=== PATIENT | male | born 1985 | race Caucasian/White ===

== ENCOUNTER 2017-03-08 18:53 | Emergency (ER) | payer MEDICARE, MEDICAID ==
--- NOTE | 2017-03-08 19:42 | ED Physician Documentation ---
PD HPI HEADACHE - Stated complaint Stated Complaint: HEAD PAIN - Chief complaint Chief Complaint: Neuro - History obtained from History obtained from: Patient - History of Present Illness Timing - onset: How many days ago (3) Timing - duration: Days (3) Timing - details: Abrupt onset Pain level max: 6 Pain level now: 6 Location: Back Quality: Aching, Other (sharp) Associated symptoms: No: Fever, Stiff neck, Vomiting, Weakness, Numbness, Syncope, Seizure, Eye pain, Vision changes Improved by: Rest Worsened by: Light, Noise, Moving Contributing factors: No: Anticoagulated, Possible carbon monoxide, Hypertension , Trauma - Additional information Additional information: Pt is a transgender HIV+ male. States last viral load undetectable. States lifting weights on Monday, had sharp occipital headache. 01/14. Mild relief with tylenol. States continues to have some posterior headache. No numbness, or tingling. +nausea. No vomiting. Review of Systems Ten Systems: 10 systems reviewed and negative Constitutional: denies: Fever, Chills Ears: denies: Ear pain Nose: denies: Rhinorrhea / runny nose, Congestion Throat: denies: Sore throat Cardiac: denies: Chest pain / pressure Respiratory: denies: Cough GI: denies: Nausea, Vomiting, Diarrhea Skin: denies: Rash Musculoskeletal: denies: Neck pain, Back pain Neurologic: denies: Focal weakness, Numbness, Seizure, Confused, Altered mental status PD PAST MEDICAL HISTORY - Past Medical History Respiratory: Other Neuro: None Endocrine/Autoimmune: None Psych: Depression Musculoskeletal: Chronic back pain - Past Surgical History Past Surgical History: Yes 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 - Present Medications Home Medications: Ambulatory Orders Medication Instructions Recorded Confirmed Emtricitabine/Tenofovir [Truvada 1 tab PO DAILY 01/05/16 01/05/16 200 mg-300 mg Tablet] Lopinavir/Ritonavir [Kaletra 1 tab PO DAILY 01/05/16 01/05/16 200-50 mg Tablet] oxyCODONE/ACET 5/325 [Percocet 5 1 - 2 tab PO Q4-6H PRN #20 tablet 01/05/16 mg/325 mg] - Allergies Allergies/Adverse Reactions: Allergies Allergy/AdvReac Type Severity Reaction Status Date / Time hydrocodone bitartrate * Allergy Nausea Verified 01/05/16 11:21 [From Vicodin] Sulfa (Sulfonamide Allergy Rash Verified 01/05/16 11:21 Antibiotics) - Social History Does the pt smoke?: No Smoking Status: Never smoker Does the pt drink ETOH?: Yes Does the pt have substance abuse?: No - POLST Patient has POLST: No PD ED PE NORMAL - Vitals Vital signs reviewed: Yes - General General: Alert and oriented X 3, No acute distress, Well developed/nourished - HEENT HEENT: PERRL, Moist mucous membranes - Neck Neck: Supple, no meningeal sign, No JVD, No bruit - Cardiac Cardiac: RRR, Strong equal pulses - Respiratory Respiratory: No respiratory distress, Clear bilaterally - Abdomen Abdomen: Soft, Non tender, Non distended - Back Back: No spinal TTP - Derm Derm: Warm and dry, No rash - Extremities Extremities: No calf tenderness / cord - Neuro Neuro: Alert and oriented X 3, rn procedures 2-12 intact, No motor deficit, No sensory deficit, Normal speech, Other (normal cerebellar tests) - Psych Psych: Normal mood, Normal affect Results - Vitals Vitals: Oxygen O2 Source Room air - Labs Labs: Laboratory Tests 03/08/17 03/08/17 20:26 20:26 WBC 10.3 RBC 5.31 Hgb 15.1 Hct 45.5 MCV 85.8 MCH 28.5 MCHC 33.2 RDW 14.5 Plt Count 256 MPV 8.4 Neut # 6.2 Lymph # 2.6 [place] # 0.7 Eos # 0.7 Baso # 0.1 Absolute Nucleated RBC 0.01 Nucleated RBCs 0.1 Sodium 137 Potassium 3.9 Chloride 103 Carbon Dioxide 26 Anion Gap 8.0 BUN 19 Creatinine 1.2 Estimated GFR (MDRD) 70 L Glucose 106 H Calcium 9.2 Total Bilirubin 0.4 AST 42 ALT 26 Alkaline Phosphatase 40 L Total Protein 7.2 Albumin 4.2 Globulin 3.0 Albumin/Globulin Ratio 1.4 Lipase 38 - Rads (name of study) head CT Radiology: Prelim report reviewed, EMP read contemporaneously, See rad report ( normal) PD MEDICAL DECISION MAKING - ED course Complexity details: reviewed results, re-evaluated patient, considered differential, d/w patient ED course: Patient is a 32-year-old transgendered male who presents to the emergency department with a headache for the past 3 days. Resolved with Toradol and Imitrex. No acute findings on head CT. We did discuss the possibility of a missed subarachnoid hemorrhage on head CT, patient declines lumbar puncture at this time. We will have him follow-up with his doctor for further evaluation and care. He is well-appearing, nontoxic. Afebrile. Normal neurological exam. Patient counseled regarding signs and symptoms for which I believe and urgent re-evaluation would be necessary. Patient with good understanding of and agreement to plan and is comfortable going home at this time This document was made in part using voice recognition software. While efforts are made to proofread this document, sound alike and grammatical errors may occur. Departure - Departure Disposition: Home, Self Care Clinical Impression: Headache Qualifiers: Headache type: unspecified Headache chronicity pattern: acute headache Intractability: not intractable Qualified Code(s): R51 - Headache Condition: Good Instructions: ED Cephalgia Unspecified Follow-Up: TRINI SALAZAR MD [Primary Care Provider] - Within 1 week Comments: Return if you worsen. Your head CT and lab work is normal tonight. Your blood pressure was elevated today on check in to the emergency department. This does not mean that you have hypertension, it is a common phenomenon to check into the emergency department and have elevated blood pressure. I recommend that you see your primary care physician within the week to have it rechecked when you're feeling better. Discharge Date/Time: 03/08/17 22:09
[2017-03-08 20:32] LABS: BASOPHILS # (AUTO) 0.1 10^3/uL (0.0-0.1); BASOPHILS % (AUTO) 0.6 %; EOSINOPHILS # (AUTO) 0.7 10^3/uL (0.0-0.7); EOSINOPHILS % (AUTO) 6.8 %; HCT - HEMATOCRIT 45.5 % (42.0-52.0); HGB - HEMOGLOBIN 15.1 g/dL (14.0-18.0); LYMPHOCYTES # (AUTO) 2.6 10^3/uL (1.5-3.5); LYMPHOCYTES % (AUTO) 25.1 %; MEAN CORPUSCULAR HEMOGLOBIN 28.5 pg (27.0-31.0); MEAN CORPUSCULAR HGB CONC 33.2 g/dL (32.0-36.0); MEAN CORPUSCULAR VOLUME 85.8 fL (80.0-94.0); MEAN PLATELET VOLUME 8.4 fL (7.4-11.4); MONOCYTES # (AUTO) 0.7 10^3/uL (0.0-1.0); MONOCYTES % (AUTO) 7.1 %; NEUTROPHILS # (AUTO) 6.2 10^3/uL (1.5-6.6); NEUTROPHILS % (AUTO) 60.4 %; NUCLEATED RED BLOOD CELLS AUTO 0.1 /100WBC; RED BLOOD COUNT 5.31 10^6/uL (4.70-6.10); RED CELL DISTRIBUTION WIDTH 14.5 % (12.0-15.0); UNCORRECTED WHITE BLOOD COUNT 10.3 x10^3/uL; WHITE BLOOD COUNT 10.3 x10^3/uL (4.8-10.8)
[2017-03-08] MEDS ORDERED: KETOROLAC 60 MG/2 ML VIAL IVP STA (20:44)
[2017-03-08] MEDS ORDERED: SUMAtriptan 6 MG/0.5 ML VIAL SUBQ STA (20:44)
[2017-03-08 20:45] LABS: ALBUMIN/GLOBULIN RATIO 1.4 (1.0-2.2); BILIRUBIN,TOTAL 0.4 mg/dL (0.2-1.0); CALCIUM 9.2 mg/dL (8.5-10.3); CREATININE 1.2 mg/dL (0.6-1.2); POTASSIUM 3.9 mmol/L (3.5-5.0); TOTAL PROTEIN 7.2 g/dL (6.7-8.2)
[2017-03-08] MEDS ORDERED: KETOROLAC 30 MG/ML VIAL ONE (20:54)
[2017-03-08] MEDS ORDERED: SUMAtriptan 6 MG/0.5 ML VIAL SUBQ ONE (20:54)
--- NOTE | 2017-03-08 20:57 | CT Preliminary Report ---
Exam: CT Head W/O IMPRESSION: Normal head CT. [facility] SITE ID: [id number]
--- NOTE | 2017-03-08 21:00 | CT Report ---
EXAM: CT HEAD EXAM DATE: 03/08/2017 08:35 PM. CLINICAL HISTORY: Occipital headache COMPARISON: None. TECHNIQUE: Multiaxial CT images were obtained from the foramen magnum to the vertex. IV contrast: Non e. Reformats: Coronal. In accordance with CT protocol optimization, one or more of the following dose reduction techniques w ere utilized for this exam: automated exposure control, adjustment of mA and/or KV based on patient s ize, or use of iterative reconstructive technique. FINDINGS: Parenchyma: No intraparenchymal hemorrhage. No evidence of mass, midline shift, or CT findings of inf arction. Paz-white differentiation is distinct. Extraaxial Spaces: Normal for age. No subdural or epidural collections identified. Ventricles: Normal in size and position. Sinuses: Imaged paranasal sinuses, orbits, and mastoids show no significant abnormality. Bones: No evidence of fracture or calvarial defect. Other: None. IMPRESSION: Normal head CT. [facility] Referring Provider Line: [phone] SITE ID: [id number]
[2017-03-08 21:48] VITALS: BP 134/96
== END 2017-03-08 22:09 | disposition home or self-care (01) ==
LOC: ED 18:53
DX: R51 Headache (principal); R03.0 Elevated blood-pressure reading, without diagnosis of hypertension; G89.29 Other chronic pain; Z21 Asymptomatic human immunodeficiency virus [HIV] infection status
CPT/HCPCS: 36415; 70450; 80053; 83690; 85025; 96372; 96374; 99283; 99284

== ENCOUNTER 2018-03-28 02:43 | Emergency (ER) | payer MEDICARE, MEDICAID ==
[2018-03-28 02:59] VITALS: BP 166/97
[2018-03-28] MEDS ORDERED: DEXAMETHASONE 10 MG/ML VIAL PO STA (02:59)
[2018-03-28] MEDS ORDERED: CYCLOBENZAPRINE 10 MG Prepack 2 PO STA (02:59)
[2018-03-28] MEDS ORDERED: KETOROLAC 60 MG/2 ML VIAL IM STA (02:59)
[2018-03-28] MEDS ORDERED: CHERRY SYRUP 10 ML UDC PO ONE (03:03)
--- NOTE | 2018-03-28 03:03 | ED Physician Documentation ---
PD HPI BACK INJURY - Stated complaint Stated Complaint: BACK PAIN - History obtained from History obtained from: Patient - History of Present Illness Location: Left, Lower Type of injury: Other (lifting) Where injury occurred: Home Timing - onset: Yesterday Timing - details: Abrupt onset, Still present Quality: Pain, Spasm Worsened by: Moving, Palpating Associated symptoms: No: Fever, Weakness, Numbness, Incontinent of urine, Unable to urinate, Hematuria Recently seen: Not recently seen - Additional information Additional information: Patient is presenting to the emergency department for back pain. patient states that he was pulling a bale of hay out of the trunk of his car and he was in an odd position and he tweaked his back. Patient denies any neurological deficits. 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 - Present Medications Home Medications: Ambulatory Orders Medication Instructions Recorded Confirmed Emtricitabine/Tenofovir [Truvada 1 tab PO DAILY 01/05/16 01/05/16 200 mg-300 mg Tablet] Lopinavir/Ritonavir [Kaletra 1 tab PO DAILY 01/05/16 01/05/16 200-50 mg Tablet] oxyCODONE/ACET 5/325 [Percocet 5 1 - 2 tab PO Q4-6H PRN #20 tablet 01/05/16 mg/325 mg] Cyclobenzaprine [Flexeril] 10 mg PO TID PRN #10 tablet 03/28/18 Lidocaine Patch 5% [Lidoderm Patch] 1 each TOP DAILY #10 patch 03/28/18 - Allergies Allergies/Adverse Reactions: Allergies Allergy/AdvReac Type Severity Reaction Status Date / Time hydrocodone bitartrate * Allergy Nausea Verified 03/28/18 02:51 [From Vicodin] Sulfa (Sulfonamide Allergy Rash Verified 03/28/18 02:51 Antibiotics) - Social History Does the pt smoke?: No Smoking Status: Never smoker Does the pt drink ETOH?: Yes Does the pt have substance abuse?: No - POLST Patient has POLST: No PD ED PE NORMAL - Vitals Vital signs reviewed: Yes - General General: Alert and oriented X 3, No acute distress - HEENT HEENT: Atraumatic - Cardiac Cardiac: RRR - Respiratory Respiratory: No respiratory distress - Abdomen Abdomen: Non tender, Non distended - Derm Derm: Normal color - Extremities Extremities: No deformity - Neuro Neuro: Alert and oriented X 3, No motor deficit, No sensory deficit, Normal speech, Other (no saddle parasthesia) Eye Opening: Spontaneous PD ED PE EXPANDED - Back Back: Soft tissue tenderness (tenderness to palpation of left lower paraspinal muscles ), Straight leg raise + L. No: Straight leg raise + R Results - Vitals Vitals: Vital Signs - 24 hr 03/28/18 02:45 Temperature 36.2 C L Heart Rate 83 Respiratory 18 Rate Blood Pressure 166/97 H O2 Saturation 100 Oxygen O2 Source Room air PD MEDICAL DECISION MAKING - ED course Complexity details: reviewed old records, re-evaluated patient, considered differential, d/w family ED course: Patient was seen and examined at bedside. Patient had no focal neurological deficits and straight leg testing was unilateral indicating the injury was unlikely central in nature. Patient was treated with toradol and decadron. Patient required no further inpatient work up and was stable for discharge with outpatient follow up. - Sepsis Event Vital Signs: Vital Signs - 24 hr 03/28/18 02:45 Temperature 36.2 C L Heart Rate 83 Respiratory 18 Rate Blood Pressure 166/97 H O2 Saturation 100 Oxygen O2 Source Room air Departure - Departure Disposition: 01 Home, Self Care Clinical Impression: Low back strain Condition: Good Instructions: ED Back Care Tips, ED Sprain Strain Lumbar Follow-Up: TRINI SALAZAR MD [Primary Care Provider] - Within 3 Days Prescriptions: Cyclobenzaprine [Flexeril] 10 mg PO TID PRN #10 tablet PRN Reason: Spasms Lidocaine Patch 5% [Lidoderm Patch] 1 each TOP DAILY #10 patch Comments: Your symptoms today are likely secondary to a back strain. You should alternate between ice and heat. You can take motrin or tylenol as needed for pain and flexeril for spasm. If you take the flexeril you cannot drive or operate heavy machinery while taking it. You should follow up with your doctor if your symptoms persist. You may return to the emergency department at any time for new, worsening or uncontrollable symptoms.
== END 2018-03-28 03:13 | disposition home or self-care (01) ==
LOC: ED 02:43
DX: S39.012A Strain of muscle, fascia and tendon of lower back, initial encounter (principal); X50.0XXA Overexertion from strenuous movement or load, initial encounter; X50.1XXA Overexertion from prolonged static or awkward postures, initial encounter; Y93.89 Activity, other specified; Y92.009 Unspecified place in unspecified non-institutional (private) residence as the place of occurrence of the external cause
CPT/HCPCS: 96372; 99283; A9270

== ENCOUNTER 2019-06-17 20:01 | Emergency (ER) | payer MEDICARE, MEDICAID ==
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
[2019-06-17] MEDS ORDERED: METHOCARBAMOL 500 MG TABLET PO STA (21:21)
[2019-06-17] MEDS ORDERED: KETOROLAC 60 MG/2 ML VIAL IM STA (21:21)
[2019-06-17] MEDS ORDERED: ACETAMINOPHEN 325 MG TABLET PO STA (21:21)
[2019-06-17] MEDS ORDERED: oxyCODONE/ACET 5/325 Prepack 4 PO STA (21:21)
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
[2019-06-17 22:21] VITALS: BP 123/65
== END 2019-06-17 22:25 | disposition home or self-care (01) ==
LOC: ED 20:01
DX: S39.012A Strain of muscle, fascia and tendon of lower back, initial encounter (principal); R10.30 Lower abdominal pain, unspecified; V40.0XXA Car driver injured in collision with pedestrian or animal in nontraffic accident, initial encounter; Y92.410 Unspecified street and highway as the place of occurrence of the external cause
CPT/HCPCS: 74176; 96372; 99283; 99284; A9270

== ENCOUNTER 2020-05-25 14:00 | Emergency (ER) | payer MEDICARE, MEDICAID ==
--- NOTE | 2020-05-25 14:19 | ED Physician Documentation ---
PD HPI DYSPNEA - Stated complaint Stated Complaint: COUGH, GAYLE - Chief complaint Chief Complaint: Resp - History obtained from History obtained from: Patient - Additional information Additional information: 35-year-old gentleman with history of HIV and AIDS, last CD4 count 146. He became acutely ill yesterday with cough and shortness of breath and a low-grade fever to "99.4." His roommate is also sick. Review of Systems Constitutional: reports: Fever, Fatigue. 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 - Present Medications Home Medications: Ambulatory Orders Medication Instructions Recorded Confirmed Doxycycline Hyclate 100 mg PO BID #14 capsule 05/25/20 - Allergies Allergies/Adverse Reactions: Allergies Allergy/AdvReac Type Severity Reaction Status Date / Time hydrocodone bitartrate * Allergy Nausea Verified 05/25/20 14:02 [From Vicodin] Sulfa (Sulfonamide Allergy Rash Verified 05/25/20 14:02 Antibiotics) - Social History Does the pt smoke?: No Smoking Status: Never smoker Does the pt drink ETOH?: No Does the pt have substance abuse?: Yes - POLST Patient has POLST: No PD ED PE NORMAL - Vitals Vital signs reviewed: Yes - General General: Alert and oriented X 3, No acute distress - HEENT HEENT: PERRL, EOMI - Neck Neck: Supple, no meningeal sign, No bony TTP - Cardiac Cardiac: RRR, No murmur - Respiratory Respiratory: No respiratory distress, Other (Mild expiratory wheezes without focal findings otherwise. Nonlabored.) - Abdomen Abdomen: Non tender - Derm Derm: No rash - Extremities Extremities: No edema, No calf tenderness / cord - Neuro Neuro: Alert and oriented X 3, Normal speech Results - Vitals Vitals: Vital Signs - 24 hr 05/25/20 14:02 Temperature 37.1 C Heart Rate 100 Respiratory 16 Rate Blood Pressure 146/95 H O2 Saturation 98 Oxygen O2 Source Room air - Rads (name of study) 1v chest Radiology: EMP read contemporaneously (normal) PD MEDICAL DECISION MAKING - ED course ED course: 35-year-old gentleman with a respiratory infection. Underlying HIV/AIDS. No evidence of pneumonia or pneumocystis on x-ray. Vitals are unremarkable. Will place on doxycycline given his immunocompromise. Covid test pending. Departure - Departure Disposition: Home, Self Care Clinical Impression: Bronchitis, HIV disease Condition: Good Record reviewed to determine appropriate education?: Yes Instructions: ED Bronchitis Asthmatic Prescriptions: Doxycycline Hyclate 100 mg PO BID #14 capsule Comments: You have a Covid test pending. You need to self quarantine until the result is done and negative. Do not leave your house. Do not get near anybody. The results should be done in 48 to 72 hours. We will call with a positive result, the fastest way to get a negative result for confirmation though is to go to the hospital website at [email or web address], click on the my i'mma tab and sign up for the patient portal.
--- NOTE | 2020-05-25 15:02 | XRAY Report ---
PROCEDURE: Chest 1 View X-Ray INDICATIONS: cough TECHNIQUE: One view of the chest was acquired. COMPARISON: Abdomen/pelvis CT 06/17/2019 FINDINGS: Surgical changes and devices: None. Lungs and pleura: No pleural effusions or pneumothorax. Lungs are clear. Mediastinum: Mediastinal contours appear normal. Heart size is normal. Bones and chest wall: No suspicious bony lesions. Overlying soft tissues appear unremarkable. IMPRESSION: Normal for age, source of current symptoms is not seen. Reviewed by: Jasmeet Rivera MD on 05/25/2020 3:00 PM PDT Approved by: Jasmeet Rivera MD on 05/25/2020 3:00 PM PDT Station ID: [id number]
[2020-05-25 15:29] VITALS: BP 143/88
== END 2020-05-25 15:40 | disposition home or self-care (01) ==
LOC: ED 14:00
DX: J40 Bronchitis, not specified as acute or chronic (principal); B20 Human immunodeficiency virus [HIV] disease; Z20.818 Contact with and (suspected) exposure to other bacterial communicable diseases
CPT/HCPCS: 71045; 99283; U0004

== ENCOUNTER 2022-05-19 11:40 | Outpatient (CLI) | payer OTHER, MEDICARE, MEDICAID | END 2022-05-19 23:59 | disposition short-term general hospital (02) | LOC: EMS 11:40 | DX: S39.91XA Unspecified injury of abdomen, initial encounter (principal); M25.572 Pain in left ankle and joints of left foot; V53.5XXA Driver of pick-up truck or van injured in collision with car, pick-up truck or van in traffic accident, initial encounter; Y92.413 State road as the place of occurrence of the external cause | CPT/HCPCS: A0425; A0427 ==

== ENCOUNTER 2023-10-20 12:05 | Outpatient (CLI) | payer MEDICARE, MEDICAID ==
--- NOTE | 2023-10-20 14:00 | XRAY Report ---
PROCEDURE: Hip w/Pelvis 4+V RT INDICATIONS: RT HIP PAIN TECHNIQUE: 4 views of the hip were acquired. COMPARISON: None. FINDINGS: Bones: No displaced fracture or dislocation. No high-grade degenerative changes. Soft tissues: No suspicious calcifications. IMPRESSION: No acute radiographic abnormality. No high-grade degenerative changes. If there is high concern for f urther derangement, consider MRI evaluation. MRI arthrogram would be ideal if there is concern for la bral pathology. Reviewed by: Cresencio Salinas MD on 10/20/2023 1:58 PM PDT Approved by: Cresencio Salinas MD on 10/20/2023 1:58 PM PDT Station ID: [id number]
== END 2023-10-20 12:06 | disposition home or self-care (01) ==
LOC: DI 12:05
PROVIDERS: ATTEND Family Medicine
DX: M25.551 Pain in right hip (principal); G89.29 Other chronic pain